=== PATIENT | male | born 1960 | race Caucasian/White ===

== ENCOUNTER 2017-01-23 05:45 | Emergency (ER) | payer BC ==
[~2017-01-23 05:45] MED LIST: ANTIVERT25 M1 PO; THYROID MED; ZOFRAN4 M2 PO
[2017-01-23] MEDS ORDERED: SILVADENE20 G1 TP (06:29)
== END 2017-01-23 06:43 ==
LOC: EDMED 05:45
PROC: 2W2JX4Z Dressing of Right Finger using Bandage (ICD-10-PCS; principal; 2017-01-23)
DX: T23.221A Burn of second degree of single right finger (nail) except thumb, initial encounter (principal); T31.0 Burns involving less than 10% of body surface; E07.9 Disorder of thyroid, unspecified; X19.XXXA Contact with other heat and hot substances, initial encounter; Z79.890 Hormone replacement therapy